=== PATIENT | female | born 1960 | race Caucasian/White ===

== ENCOUNTER 2019-06-23 15:29 | Inpatient (IN) | payer OTHER ==
[~2019-06-23] VITALS: Ht 154.9 cm; Wt 78.5 kg
--- NOTE | 2019-06-23 16:19 | EKG ---
[address] [address] Test Date: 2019-06-23 Test Time: 15:41:46 Pat Name: ALLEN CURRIE Department: Room: Gender: F Computer Systems Software Architect: : 1960 Requested By: ZOYA APPLE Order Number: [id number] Reading MD: Jeff Ray MD Measurements Intervals [place] Rate: 82 P: 34 LA: 148 QRS: 12 QRSD: 76 T: 36 QT: 338 QTc: 398 Interpretive Statements SINUS RHYTHM Electronically Signed On 06-24-2019 11:16:18 TECHNICAL ENGINEER by Jeff Ray MD
[2019-06-23 16:48] LABS: BASO % 1 % (0-3); EOS # 0.1 x10^3/uL (0.0-0.7); EOS % 1 % (0-3); HEMATOCRIT 39.5 % (36.0-47.0); HEMOGLOBIN 12.9 g/dL (12.0-15.5); LYMPH # 1.3 x10^3/uL (1.0-4.8); LYMPH % 24 % (24-48); MEAN CORPUSCULAR HEMOGLOBIN 28 pg (25-35); MEAN CORPUSCULAR HGB CONC 33 g/dL (31-37); MEAN CORPUSCULAR VOLUME 86 fL (79-100); MONO # 0.6 x10^3/uL (0.0-1.1); MONO % 11 % (0-9); NEUT # 3.3 x10^3uL (1.8-7.7); NEUT % 63 % (31-73); PLATELET COUNT 187 x10^3/uL (140-400); RED BLOOD COUNT 4.59 x10^6/uL (3.50-5.40); RED CELL DISTRIBUTION WIDTH 13.2 % (11.5-14.5); WHITE BLOOD COUNT 5.3 x10^3/uL (4.0-11.0)
--- NOTE | 2019-06-23 16:51 | RAD ---
CHEST AP ONLY History: Chest pain Comparison: None. Findings: No consolidation or pleural effusion. Normal heart size. No pneumothorax. Impression: 1. No acute cardiopulmonary process. Electronically signed by: Nam Amor DO (06/23/2019 4:48 PM) [facility]
--- NOTE | 2019-06-23 16:59 | PHYS DOC ---
Adult General Chief Complaint Chief Complaint: CHEST PAIN HPI HPI 59-year-old female presents with chest pain. She been having chest pain since last night. She has episodes of sharp intense pain in the center of her chest and radiates through to her back. These episodes last for about 10 minutes at a time. Her last episode was an 8 out of 10 one hour prior to arriving in the ED. she has not had pain like this before. Patient does have heartburn at baseline, but takes daily medication. She doesn't think that it feels like heartburn. It also does not feel like her asthma exacerbations or pneumonia. She has not had a stress test in 10 years.. As of hyperlipidemia and hypertension. She denies fever or chills Review of Systems Review of Systems Constitutional: Denies fever or chills [] Eyes: Denies change in visual acuity, redness, or eye pain [] HENT: Denies nasal congestion or sore throat [] Respiratory: Denies cough or shortness of breath [] Cardiovascular: No additional information not addressed in HPI [] GI: Denies abdominal pain, nausea, vomiting, bloody stools or diarrhea [] : Denies dysuria or hematuria [] Musculoskeletal: Denies back pain or joint pain [] Integument: Denies rash or skin lesions [] Neurologic: Denies headache, focal weakness or sensory changes [] Endocrine: Denies polyuria or polydipsia [] All other systems were reviewed and found to be within normal limits, except as documented in this note. Physical Exam Physical Exam Constitutional: Well developed, obese, well nourished, no acute distress, non- toxic appearance. [] HENT: Normocephalic, atraumatic, bilateral external ears normal, oropharynx moist, no oral exudates, nose normal. [] Eyes: PERRLA, EOMI, conjunctiva normal, no discharge. [] Neck: Normal range of motion, no tenderness, supple, no stridor. [] Cardiovascular:Heart rate regular rhythm, no murmur [] Lungs & Thorax: Bilateral breath sounds clear to auscultation [] Abdomen: Bowel sounds normal, soft, no tenderness, no masses, no pulsatile masses. [] Skin: Warm, dry, no erythema, no rash. [] Back: No tenderness, no CVA tenderness. [] Extremities: No tenderness, no cyanosis, no clubbing, ROM intact, no edema. [] Neurologic: Alert and oriented X 3, normal motor function, normal sensory function, no focal deficits noted. [] Psychologic: Affect normal, judgement normal, mood anxious.[] EKG EKG Sinus rhythm, rate 82, normal axis, no ST elevations or depressions.[] Radiology/Procedures Radiology/Procedures [] Impressions: CHEST AP ONLY History: Chest pain Comparison: None. Findings: No consolidation or pleural effusion. Normal heart size. No pneumothorax. Impression: 1. No acute cardiopulmonary process. Electronically signed by: Karolina Nuno DO (06/23/2019 4:48 PM) [facility] DICTATED AND SIGNED BY: KAROLINA NUNO DO DATE: 06/23/191647 CC: ZOYA APPLE DO; SARA COELHO MD ~ Course & Med Decision Making Course & Med Decision Making Pertinent Labs and Imaging studies reviewed. (See chart for details) The patient's EKG is unremarkable. Her troponin is negative. Her labs are unremarkable. Her heart scores a 3 due to her risk factors. Based on her history, cardiac cause seems unlikely. Her chest x-ray is unremarkable. I will try a GI cocktail. The patient is stable for discharge at this time. She will follow up with her primary care physician. [] Dragon Disclaimer Dragon Disclaimer This electronic medical record was generated, in whole or in part, using a voice recognition dictation system. The HEART Score for CP Pts HEART Score for Chest Pain: HEART Score for Chest Pain Response (Comments) Value History Slighlty/Non-Suspicious 0 ECG Normal 0 Age >45 - < 65 1 Risk Factors >3 Risk Factors or Hx CAD 2 Troponin < Normal Limit 0 Total 3 Risk Factors: Risk Factors: DM, Current or recent (<one month) smoker, HTN, HLP, family history of CAD, obesity. Risk Scores: Score 0 - 3: 2.5% MACE over next 6 weeks - Discharge Home Score 4 - 6: 20.3% MACE over next 6 weeks - Admit for Clinical Observation Score 7 - 10: 72.7% MACE over next 6 weeks - Early Invasive Strategies Departure Departure: Impression: Primary Impression: Chest pain Disposition: HOME, SELF-CARE Condition: STABLE Referrals: SARA COELHO MD (PCP) Patient Instructions: Chest Pain (Nonspecific), [id number] Problem Qualifiers Primary Impression: Chest pain Chest pain type: precordial pain Qualified Codes: R07.2 - Precordial pain ZOYA APPLE DO Jun 23, 2019 16:59
[2019-06-23 17:02] LABS: CALCIUM 9.2 mg/dL (8.5-10.1); CREATININE 0.7 mg/dL (0.6-1.0); GFR 85.4; POTASSIUM 3.9 mmol/L (3.5-5.1)
[2019-06-23 17:08] LABS: ALBUMIN 3.8 g/dL (3.4-5.0); ALBUMIN/GLOBULIN RATIO 1.1 (1.0-1.7); TOTAL BILIRUBIN 0.5 mg/dL (0.2-1.0); TOTAL PROTEIN 7.2 g/dL (6.4-8.2)
[2019-06-23 17:16] LABS: LIPASE 108 U/L (73-393)
[2019-06-23] MEDS ORDERED: LIDO:MAALOX 1:1 20 ML SINGLE DOSE. PO ONE (17:45)
[2019-06-23] MEDS ORDERED: ASPIRIN 81 MG TAB.CHEW PO ONE (18:00)
[2019-06-23] MEDS ORDERED: MORPHINE SULFATE 2 MG/ML DISP.SYRIN. IV ONE (18:00)
[2019-06-23] MEDS ORDERED: ONDANSETRON PF 4 MG/2 ML VIAL. ONE (18:02)
[2019-06-23] MEDS ORDERED: ONDANSETRON PF 4 MG/2 ML VIAL. IVP ONE (18:15)
[2019-06-23] MEDS ORDERED: MORPHINE SULFATE 2 MG/ML DISP.SYRIN. IV PRN (18:15)
[2019-06-23] MEDS ORDERED: ONDANSETRON PF 4 MG/2 ML VIAL. IV PRN (18:15)
[2019-06-23 19:24] VITALS: BP 107/66
--- NOTE | 2019-06-23 21:00 | NUR ---
The patient, ALLEN CURRIE, 59 y/o, F admitted by NILAY EMERY MD, to room 121, was given written information regarding hospital policies, unit procedures and contact persons. Valuables were checked and recorded. Medication and medical history reviewed. Physical and social assessments performed. Pt continue to c/o pain under left breast and left thoracic back with parethesia of left face and arm 2/10. Pt pleasant, calm and cooperative. Pt uses cane to walk which she brought from home. Pt and family recently moved here from [place] for work at [employer] and uses [facility] for their pharmacy. Will continue to monitor.
[2019-06-23 23:40] VITALS: BP 100/63
[2019-06-24] MEDS ORDERED: CARV40CP5 PO (00:04)
[2019-06-24] MEDS ORDERED: OXYB10TA26 PO (00:04)
[2019-06-24] MEDS ORDERED: LOSA100T14 PO (00:04)
[2019-06-24] MEDS ORDERED: FLUT1DIS IH (00:04)
[2019-06-24] MEDS ORDERED: OMEP40CA45 PO (00:04)
[2019-06-24] MEDS ORDERED: SIMV20TA18 PO (00:04)
[2019-06-24] MEDS ORDERED: FLUT1DIS3 IH (05:20)
[2019-06-24 06:06] VITALS: BP_SYST 108; BP_SYST 92; BP_DIAS 64; BP_DIAS 70
[2019-06-24 07:21] LABS: CALCIUM 8.8 mg/dL (8.5-10.1); CREATININE 0.7 mg/dL (0.6-1.0); GFR 85.4; POTASSIUM 4.1 mmol/L (3.5-5.1)
[2019-06-24] MEDS: ALBUTEROL SULFATE 2.5 MG/3 ML NEBU. NEB SCH ×2 (08:00→14:00)
[2019-06-24] MEDS ORDERED: BUDESONIDE 0.5 MG/2 ML NEBU NEB SCH (08:00)
[2019-06-24] MEDS: CARVEDILOL 12.5 MG TABLET PO SCH ×2 (08:39→17:15)
[2019-06-24] MEDS: OXYBUTYNIN CHLORIDE 5 MG TABLET PO SCH ×2 (08:39→15:58)
[2019-06-24] MEDS ORDERED: LOSARTAN 50 MG TABLET. PO SCH (09:00)
[2019-06-24] MEDS ORDERED: NON FORMULARY ITEM (Fluticasone/Salmeterol (Advair 250-50 Diskus) 1 PUFF) IH SCH (09:00)
[2019-06-24 10:38] VITALS: BP 109/66
[2019-06-24 10:51] LABS: BILIRUBIN,URINE NEG (NEG); CLARITY,URINE CLEAR; COLOR,URINE YELLOW; GLUCOSE,URINE NEG (NEG)
[2019-06-24 10:52] LABS: BACTERIA,URINE FEW /HPF (0-FEW); HYALINE CASTS, URINE OCC /HPF; NITRITE,URINE NEG (NEG); RBC,URINE RARE /HPF (0-2); SQUAMOUS EPITHELIAL CELL,UR OCC /LPF; UROBILINOGEN,URINE 0.2 mg/dL (0.2 mg/dL)
--- NOTE | 2019-06-24 11:29 | CONS ---
DATE OF CONSULTATION: 06/23/2019 REASON FOR CONSULTATION: Chest pain. HISTORY OF PRESENT ILLNESS: The patient is a pleasant 59-year-old woman with medical history of hypertension, dyslipidemia who presents to the hospital in the setting of severe chest pain. She rated 8/10. She had 2-3 episodes while in the ER, but no EKG or troponin elevation was noted. She was admitted for further evaluation. The patient reports exertional dyspnea and chest discomfort over the last several weeks. No syncope or palpitations. PAST MEDICAL HISTORY: As noted above. SOCIAL HISTORY: The patient used to smoke, quit 20-30 years ago. She is . No alcohol or illicit drug use. ALLERGIES: PENICILLINS, SULFA AND TRAMADOL. FAMILY HISTORY: Notable for coronary artery disease. REVIEW OF SYSTEMS: Negative unless otherwise mentioned above in HPI. PHYSICAL EXAMINATION: VITAL SIGNS: Afebrile, 71, 20, 109/66, 91% on room air. GENERAL: She is alert and oriented, no acute distress. HEAD AND NECK: Unremarkable. CARDIAC: Regular rate and rhythm without murmurs, rubs or gallops. LUNGS: Clear to auscultation. ABDOMEN: Obese, nontender, nondistended. EXTREMITIES: No clubbing, cyanosis or edema, 2+ radial and dorsalis pedis pulses. NEUROLOGIC: No focal deficits. MUSCULOSKELETAL: Without any trauma. DIAGNOSTIC STUDIES: Troponin negative x 2. BNP within normal limits. Lipase is within normal limits. Renal panel was within normal limits. CBC is within normal limits. Urinalysis has minimal wbc's. Chest x-ray is unremarkable. EKG is unremarkable. IMPRESSION: 1. Unstable angina. 2. Hypertension. 3. Dyslipidemia. RECOMMENDATIONS: Given the patient's significant severe chest pains and new exertional dyspnea and significant risk factors, we will rule out any occult coronary artery disease with cardiac catheterization. I discussed extensively with the patient other options including stress testing given that she has negative troponins, but she feels more comfortable with invasive evaluation. She understands the risks including bleeding, stroke, HI, infection and contrast-induced nephropathy and she is willing to proceed. We will plan for transfer to [facility] tomorrow morning. Thank you for this consultation. KIMBERLY PRECIADO MD DR: ANDRA/dee dee JOB#: [id number] / [id number]
--- NOTE | 2019-06-24 13:29 | HP ---
ADMIT DATE: 06/23/2019 HISTORY OF PRESENT ILLNESS: The patient is a 59-year-old female patient, who presented to the Emergency Room with a complaint of recurrent chest pain since the night before coming to the Emergency Room. The pain is sharp and intense. Pain is in center of her chest, radiates through to her back. The episode lasted about 10 minutes at the time. Her last episode was about 8/10 in severity. She has not had any pain like this before. The patient does have heartburn at baseline, but she takes the daily medication for that. She does not think it feels like heartburn and does not feel like her asthma exacerbation or pneumonia. She has not had a stress test in 10 years. Her last left heart catheterization was done about 12 years ago. The pain is not associated with any nausea or vomiting. Does have episodes of diaphoresis. Denied any radiating to the left arm or left shoulder. She was evaluated in the Emergency Room. Her EKG showed that she was in the sinus rhythm at the rate of 82 with normal axis and no ST segment elevation or depression. Her chest x-ray was unremarkable, and her first set of cardiac enzymes showed troponin to be less than 0.017 and therefore, the patient was admitted to do 2 more sets of cardiac enzymes, check a fasting lipid profile, and to consult the cardiology team. PAST MEDICAL HISTORY: Significant for hypertension, hyperlipidemia, bronchial asthma, and overactive bladder. Her last heart catheterization was done about 12 years ago. PAST SURGICAL HISTORY: Significant for a left total knee arthroplasty, total abdominal hysterectomy, and bilateral salpingo-oophorectomy. She had back surgery, right shoulder surgery, appendectomy, and cholecystectomy. ALLERGIES: She is allergic to TRAMADOL, PENICILLIN, and SULFA DRUGS as well as FENTANYL. MEDICATIONS: She is currently on the following medication: She is on simvastatin 20 mg at bedtime, carvedilol 40 mg extended release once a day, losartan potassium 200 mg once a day, fluticasone/salmeterol for Advair Diskus 250/50 one puff twice a day, omeprazole 40 mg once a day, and oxybutynin chloride 10 mg daily. FAMILY HISTORY: She has one sister and 3 brothers, all of brothers and sisters have diabetes. Her father with complication of a motor neuron disease and chronic kidney disease. Her mother of CVA at the age of 80. SOCIAL HISTORY: She is and raised about 6 children. She quit smoking about 10 years ago. She smoked for about 10 years. Does not drink alcohol or do recreational drugs. She used to be a housewife. REVIEW OF SYSTEMS: As per history of present illness. PHYSICAL EXAMINATION: GENERAL: On arrival to the Emergency Room, she looked well and was clearly in no apparent respiratory distress. No pallor, jaundice, cyanosis, or thyromegaly. No jugular venous distension. No limb edema. VITAL SIGNS: Her heart rate was 79, blood pressure is 107/66, temperature 98.2, respiratory rate 20, and oxygen saturation was 97%. HEAD, EYES, EARS, NOSE, AND THROAT: Showed normocephalic and atraumatic. NECK: Supple. HEART: Showed normal first and second heart sounds. No gallop or murmur. CHEST: Clear to auscultation. No crepitation. No rhonchi. ABDOMEN: Distended, soft, and nontender. No guarding or rigidity. No organomegaly. All hernial orifices are intact. The bowel sounds are normal. NEUROLOGIC: She was awake, alert, and responding appropriately. All cranial nerves are intact. EXTREMITIES: She moves the extremities without difficulty. She ambulates without assistance or assistive devices. LABORATORY WORK: On admission showed serum sodium of 141, potassium is 3.9, chloride 104, bicarbonate 27, anion gap of 10, BUN 8, and creatinine is 0.7. Estimated GFR was 85 mL per minute. Her glucose is 109 and calcium was 9.2. Total bilirubin, AST, ALT, and alkaline phosphatase were normal. Total protein was 7.2 and albumin was 3.8. Her first set of cardiac enzymes showed troponin to be less than 0.017. Urinalysis was essentially unremarkable. The white cell count was 5300, hemoglobin 13, hematocrit 39, MCV 86, and platelet count of 107,000. ASSESSMENT AND PLAN: The patient was admitted with chest pain. We will do two sets of cardiac enzyme, check her fasting lipid profile and consult the cardiology team. NILAY EMERY MD DR: CLEMENTE/dee dee JOB#: [id number] / [id number]
[2019-06-24 14:51] VITALS: BP 96/59
[2019-06-24 17:15] VITALS: BP 96/59
[2019-06-24] MEDS ORDERED: SIMVASTATIN 20 MG TABLET PO SCH (21:00)
[2019-06-25] MEDS ORDERED: PANTOPRAZOLE 40 MG TABLET. PO SCH (07:30)
== END 2019-06-24 20:00 | disposition short-term general hospital (02) | DRG 311 ==
LOC: ER 15:29 → 1 SOUTH 19:30
PROVIDERS: ADMIT Internal Medicine; ATTEND Internal Medicine
DX: I20.0 Unstable angina (principal); E78.5 Hyperlipidemia, unspecified; I10 Essential (primary) hypertension; J45.909 Unspecified asthma, uncomplicated; N32.81 Overactive bladder; Z82.3 Family history of stroke; Z96.652 Presence of left artificial knee joint; Z82.49 Family history of ischemic heart disease and other diseases of the circulatory system; Z83.3 Family history of diabetes mellitus; Z87.891 Personal history of nicotine dependence; Z90.710 Acquired absence of both cervix and uterus; Z88.0 Allergy status to penicillin; Z88.2 Allergy status to sulfonamides; Z88.8 Allergy status to other drugs, medicaments and biological substances
CPT/HCPCS: 36415; 71045; 80048; 80053; 81001; 82947; 83690; 83880; 84484; 85025; 87086; 93005; 94640; J2270; J2405; J7613; J7626

== ENCOUNTER → 2020-12-18 | Day surgery (SDC) | payer OTHER ==
[~2020-12-18] MED LIST: ACETAMINOPHEN 500 MG TABLET PO PRN; AMIT25TA PO; BALANCED SALT IRRIG SOLN NO.2 500 ML IO ONE; BENZONATATE 100 MG CAPSULE. PO PRN; BRIMONIDINE 0.2% OPHTH SOLUTION 5ML BOTTLE. OS ONE; CARV40CP5 PO; CEFUROXIME OPHTH 4 MG/0.4 ML SYRINGE. OS ONE; CHONDROIT-SOD-HYALURONATE KIT. OS ONE; FLUT1DIS IH; FLUT1DIS3 IH; IBUPROFEN 200 MG TABLET PO PRN; IPRATRPIUM/ALBUTEROL 0.5/2.5MG 3 ML NEBU. NEB PRN; IV RINGERS SOLUTION,LACTATED 1,000 ML IV SCH; LIDO/EPI IN BSS OPHTH 2.7 ML SYRINGE. OS ONE; LIDOCAINE 2% JELLY 6ML IN APPLICATOR. ONE; LOSA100T14 PO; METF-658 PO; MIDAZOLAM HCL PF 2 MG/2 ML VIAL. IV ONE; MIDAZOLAM HCL PF 2 MG/2 ML VIAL. ONE; OMEP40CA7 PO; ONDANSETRON PF 4 MG/2 ML VIAL. IV PRN; OXYB10TA26 PO; PHENYLEPHRINE 10% OPHTH SOLUTION 5ML BOTTLE. OS PRN; POVIDONE-IODINE 5% OPHTH SOLUTION 30ML BOTTLE. ONE; POVIDONE-IODINE 5% OPHTH SOLUTION 30ML BOTTLE. OS ONE; POVIDONE-IODINE 5% OPHTH SOLUTION 30ML BOTTLE. OS PRN; PROPARACAINE 0.5% OPHTH SOLUTION 15ML BOTTLE. OS ONE; PROPARACAINE 0.5% OPHTH SOLUTION 15ML BOTTLE. OS PRN; SIMV20TA18 PO; prednisoLONE ACETATE 1% OPHTH SUSPENSION 5ML BOTTLE. OS ONE
[2020-12-18] MEDS: TROPICAMIDE 1% OPHTH SOLUTION 15ML BOTTLE. OS SCH ×3 (08:14→08:27)
[2020-12-18] MEDS: TOBRAMYCIN 0.3% OPHTH SOLUTION 5ML BOTTLE. OS SCH ×2 (08:15→08:20)
[2020-12-18] MEDS: PHENYLEPHRINE 2.5% OPHTH SOLUTION 2ML BOTTLE. OS SCH ×3 (08:15→08:27)
[2020-12-18] MEDS: KETOROLAC TROMETHAMINE 0.5% OPHTH SOLUTION BOTTLE. OS SCH ×2 (08:15→08:21)
--- NOTE | 2020-12-18 09:30 | PDOC4 ---
SURGEON: Aide Rush MD Date of Procedure: 12/18/20 PREOP Diagnosis Visually significant cataract: Left Eye OS Pre-existing astigmatism: Left Eye OS POSTOP Diagnosis Same PROCEDURE: Phaco w/ posterior chamber IOL: Left Eye OS ANESTHESIA Deep forniceal periocular 2% Lidocaine jelly Mel/retro bulbar block with 2% Lidocaine with 0.5% Marcaine DESCRIPTION OF PROCEDURE The risks, benefits, and alternatives were discussed with the patient who elected to proceed. Informed consent was obtained in writing and placed in the chart After anesthetizing the eye topically, the patient was taken to the operating room, and the operative eye was prepped and draped in the usual sterile fashion for ocular surgery. A wire lid speculum was placed. A 1-mm clear corneal paracentesis incision was created with the side-port blade at a position three o'clock hours clockwise from the temporal cornea. Then, 1% non-preserved Lidocaine with epinephrine was injected into the anterior chamber followed by viscoelastic. Cotton-tipped applicators were used to stabilize the globe, and a 2.4 mm keratome was used to create a self-sealing incision in clear cornea at the temporal limbus. The Utrata forceps were used to create a continuous curvilinear capsulorrhexis. Balanced saline solution was injected via cannula beneath the capsulorrhexis edge to hydrodissect the lens nucleus and cortex from the lens capsule. The phacoemulsification handpiece and a chopping instrument were then used to remove the lens nucleus. The remaining epinuclear material and cortex were removed with the irrigation/aspiration handpiece. Viscoelastic was used to re-inflate the lens capsule, and the intraocular lens was injected directly into the capsular bag. The corneal wound edges were hydrated with balanced salt solution on a cannula and the irrigation/aspiration handpiece was used to extract the remaining viscoelastic. Cefuroxime 0.1mg/ml / Vigamox 0.5% was injected into the anterior chamber intracamerally. The wounds were inspected and found to be watertight at an appropriate intraocular pressure. Topical antibiotic drops were placed on the corneal surface. LRI: No If Yes, Number [] [place] [] Length [] degrees Depth [] microns Incision [place]: 180 Toric Lens [place] [079] Patch/shield with Maxitrol/Tobradex/Erythromycin ointment: Yes No Co-managed patients/postop examination stable for co-management with referring doctor. EBL EBL: None SPECIMANS COLLECTED Specimens Collected: None AIDE RUSH MD Dec 18, 2020 09:30
[2020-12-18 09:43] VITALS: BP 171/79
== END | disposition home or self-care (01) ==
LOC: SURG 07:56
PROVIDERS: ATTEND Ophthalmology
DX: E11.36 Type 2 diabetes mellitus with diabetic cataract (principal); H25.12 Age-related nuclear cataract, left eye; H52.202 Unspecified astigmatism, left eye; I10 Essential (primary) hypertension; E78.00 Pure hypercholesterolemia, unspecified; J45.909 Unspecified asthma, uncomplicated; I20.0 Unstable angina; K21.9 Gastro-esophageal reflux disease without esophagitis; Z82.3 Family history of stroke; Z83.3 Family history of diabetes mellitus; Z79.899 Other long term (current) drug therapy; Z88.0 Allergy status to penicillin; Z88.2 Allergy status to sulfonamides; Z79.84 Long term (current) use of oral hypoglycemic drugs; Z88.8 Allergy status to other drugs, medicaments and biological substances; Z90.710 Acquired absence of both cervix and uterus; Z96.652 Presence of left artificial knee joint; Z80.3 Family history of malignant neoplasm of breast; Z82.49 Family history of ischemic heart disease and other diseases of the circulatory system
CPT/HCPCS: 66984; 82947; J2250; V2632

== ENCOUNTER → 2021-01-01 | Day surgery (SDC) | payer OTHER ==
[~2021-01-01] MED LIST changes: +BRIMONIDINE 0.2% OPHTH SOLUTION 5ML BOTTLE. OD ONE; -BRIMONIDINE 0.2% OPHTH SOLUTION 5ML BOTTLE. OS ONE; +CEFUROXIME OPHTH 4 MG/0.4 ML SYRINGE. OD ONE; -CEFUROXIME OPHTH 4 MG/0.4 ML SYRINGE. OS ONE; +CHONDROIT-SOD-HYALURONATE KIT. OD ONE; -CHONDROIT-SOD-HYALURONATE KIT. OS ONE; +LIDO/EPI IN BSS OPHTH 2.7 ML SYRINGE. OD ONE; -LIDO/EPI IN BSS OPHTH 2.7 ML SYRINGE. OS ONE; +PHENYLEPHRINE 10% OPHTH SOLUTION 5ML BOTTLE. OD PRN; -PHENYLEPHRINE 10% OPHTH SOLUTION 5ML BOTTLE. OS PRN; +POVIDONE-IODINE 5% OPHTH SOLUTION 30ML BOTTLE. OD ONE; +POVIDONE-IODINE 5% OPHTH SOLUTION 30ML BOTTLE. OD PRN; -POVIDONE-IODINE 5% OPHTH SOLUTION 30ML BOTTLE. OS ONE; -POVIDONE-IODINE 5% OPHTH SOLUTION 30ML BOTTLE. OS PRN; +PROPARACAINE 0.5% OPHTH SOLUTION 15ML BOTTLE. OD ONE; +PROPARACAINE 0.5% OPHTH SOLUTION 15ML BOTTLE. OD PRN; -PROPARACAINE 0.5% OPHTH SOLUTION 15ML BOTTLE. OS ONE; -PROPARACAINE 0.5% OPHTH SOLUTION 15ML BOTTLE. OS PRN; +prednisoLONE ACETATE 1% OPHTH SUSPENSION 5ML BOTTLE. OD ONE; -prednisoLONE ACETATE 1% OPHTH SUSPENSION 5ML BOTTLE. OS ONE
[2021-01-01] MEDS: TOBRAMYCIN 0.3% OPHTH SOLUTION 5ML BOTTLE. OD SCH ×2 (09:04→09:09)
[2021-01-01] MEDS: KETOROLAC TROMETHAMINE 0.5% OPHTH SOLUTION BOTTLE. OD SCH ×2 (09:05→09:09)
[2021-01-01] MEDS: TROPICAMIDE 1% OPHTH SOLUTION 15ML BOTTLE. OD SCH ×3 (09:05→09:18)
[2021-01-01] MEDS: PHENYLEPHRINE 2.5% OPHTH SOLUTION 2ML BOTTLE. OD SCH ×3 (09:05→09:18)
--- NOTE | 2021-01-01 10:24 | PDOC4 ---
SURGEON: Aide Rush MD Date of Procedure: 01/01/21 PREOP Diagnosis Visually significant cataract: Right Eye OD Pre-existing astigmatism: Right Eye OD POSTOP Diagnosis Same PROCEDURE: Phaco w/ posterior chamber IOL: Right Eye OD ANESTHESIA Deep forniceal periocular 2% Lidocaine jelly Mel/retro bulbar block with 2% Lidocaine with 0.5% Marcaine DESCRIPTION OF PROCEDURE The risks, benefits, and alternatives were discussed with the patient who elected to proceed. Informed consent was obtained in writing and placed in the chart After anesthetizing the eye topically, the patient was taken to the operating room, and the operative eye was prepped and draped in the usual sterile fashion for ocular surgery. A wire lid speculum was placed. A 1-mm clear corneal paracentesis incision was created with the side-port blade at a position three o'clock hours clockwise from the temporal cornea. Then, 1% non-preserved Lidocaine with epinephrine was injected into the anterior chamber followed by viscoelastic. Cotton-tipped applicators were used to stabilize the globe, and a 2.4 mm keratome was used to create a self-sealing incision in clear cornea at the temporal limbus. The Utrata forceps were used to create a continuous curvilinear capsulorrhexis. Balanced saline solution was injected v ia cannula beneath the capsulorrhexis edge to hydrodissect the lens nucleus and cortex from the lens capsule. The phacoemulsification handpiece and a chopping instrument were then used to remove the lens nucleus. The remaining epinuclear material and cortex were removed with the irrigation/aspiration handpiece. Viscoelastic was used to re-inflate the lens capsule, and the intraocular lens was injected directly into the capsular bag. The corneal wound edges were hydrated with balanced salt solution on a cannula and the irrigation/aspiration handpiece was used to extract the remaining viscoelastic. Cefuroxime 0.1mg/ml / Vigamox 0.5% was injected into the anterior chamber intracamerally. The wounds were inspected and found to be watertight at an appropriate intraocular pressure. Topical antibiotic drops were placed on the corneal surface. LRI: No If Yes, Number [] [place] [] Length [] degrees Depth [] microns Incision [place]: 180 Toric Lens [place] [100] Patch/shield with Maxitrol/Tobradex/Erythromycin ointment: 2 Yes No Co-managed patients/postop examination stable for co-management with referring doctor. EBL EBL: None SPECIMANS COLLECTED Specimens Collected: None AIDE RUSH MD Jan 01, 2021 10:24
[2021-01-01 10:36] VITALS: BP 133/81
== END | disposition home or self-care (01) ==
LOC: SURG 08:45
PROVIDERS: ATTEND Ophthalmology
DX: H25.11 Age-related nuclear cataract, right eye (principal); H52.201 Unspecified astigmatism, right eye; E11.36 Type 2 diabetes mellitus with diabetic cataract; K21.9 Gastro-esophageal reflux disease without esophagitis; I10 Essential (primary) hypertension; I48.91 Unspecified atrial fibrillation; E78.00 Pure hypercholesterolemia, unspecified; Z79.899 Other long term (current) drug therapy
CPT/HCPCS: 66984; 82947; J2250; V2632